=== PATIENT | female | born 1990 | race Caucasian/White ===

== ENCOUNTER 2016-06-25 15:12 | Emergency (ER) | payer OTHER | END 2016-06-25 15:42 | disposition home or self-care (01) | LOC: ER 15:12 | DX: H66.92 Otitis media, unspecified, left ear (principal); M41.9 Scoliosis, unspecified; Z79.899 Other long term (current) drug therapy; Z88.1 Allergy status to other antibiotic agents | CPT/HCPCS: 99282 ==

== ENCOUNTER 2016-06-27 18:54 | Emergency (ER) | payer OTHER | END 2016-06-27 21:26 | disposition home or self-care (01) | LOC: ER 18:54 | DX: I10 Essential (primary) hypertension (principal); F32.9 Major depressive disorder, single episode, unspecified; Z79.899 Other long term (current) drug therapy; Z88.1 Allergy status to other antibiotic agents | CPT/HCPCS: 99282 ==

== ENCOUNTER 2016-09-25 10:42 | Emergency (ER) | payer OTHER ==
[2016-09-25 11:05] LABS: URINE BILIRUBIN NEGATIVE (NEGATIVE); URINE BLOOD 3+ (NEGATIVE); URINE GLUCOSE (UA) NORMAL (NORMAL); URINE KETONE TRACE (NEGATIVE); URINE LEUKOCYTE ESTERASE 1+ (NEGATIVE); URINE NITRATE NEGATIVE (NEGATIVE); URINE PROTEIN 1+ (NEGATIVE)
[2016-09-25 11:22] LABS: URINE BACTERIA TRACE (NONE SEEN); URINE CALCIUM OXALATE CRYSTALS 0-2 /[HPF] (NONE SEEN); URINE RBC TNTC /[HPF] (0-2); URINE SQUAMOUS EPITHELIAL CELL 0-10 /[HPF] (NONE SEEN); URINE WBC 0-5 /[HPF] (0-5)
== END 2016-09-25 12:12 | disposition home or self-care (01) ==
LOC: ER 10:42
PROVIDERS: General Practice
DX: R31.9 Hematuria, unspecified (principal); K59.00 Constipation, unspecified; R10.9 Unspecified abdominal pain; N83.201 Unspecified ovarian cyst, right side; Z79.899 Other long term (current) drug therapy
CPT/HCPCS: 74150; 81001; 81025; 96372; 99070; 99283-25